=== PATIENT | male | born 1985 | race Caucasian/White ===

== ENCOUNTER 2018-02-09 08:32 | Day surgery (SDC) | payer OTHER ==
[~2018-02-09] VITALS: Ht 180.3 cm; Wt 69.5 kg
== END 2018-02-09 14:16 | disposition home or self-care (01) ==
LOC: ORSCSDS 08:32
PROVIDERS: Orthopaedic Surgery
PROC: 0LBQ0ZZ Excision of Right Knee Tendon, Open Approach (ICD-10-PCS; principal; 2018-02-09 09:45)
PROC: 0SQC4ZZ Repair Right Knee Joint, Percutaneous Endoscopic Approach (ICD-10-PCS; principal; 2018-02-09 09:45)
DX: M71.21 Synovial cyst of popliteal space [Baker], right knee (principal); S83.241A Other tear of medial meniscus, current injury, right knee, initial encounter; I10 Essential (primary) hypertension; F17.210 Nicotine dependence, cigarettes, uncomplicated
CPT/HCPCS: 88304; C1713; J0171; J0690; J1100; J1885; J2405; J3010; J7120

== ENCOUNTER 2019-05-23 05:54 | Day surgery (SDC) | payer OTHER ==
--- NOTE | 2019-05-23 06:35 | NUR ---
History, Chart, Medications and Allergies reviewed before start of procedure. Patient confirms NPO status and agrees with scheduled surgery. Lungs clear T/O to Auscultation. Patient reports completing Chlorhexadine shower X2 prior to admission to hospital. Patient States Post-Procedure ride home has been arranged. Pre-Op teaching done. Pt verbalizes understanding.
--- NOTE | 2019-05-23 06:36 | NUR ---
NO JEWELRY PRESENT AT THE TIME OF ADMIT TO [facility].
--- NOTE | 2019-05-23 06:57 | NUR ---
PATIENT TRYING TO MAKE ARRANGEMENTS FOR HIS RIDE TO COME PLANNER INTERNSHIP HIS PRESCRIPTIONS FOR PAIN MEDICATION AND CRUTCHES.
--- NOTE | 2019-05-23 07:05 | NUR ---
PATIENT UP TO BR FOR UNMEASURED VOID.
--- NOTE | 2019-05-23 07:18 | NUR ---
BEDSIDE REPORT WITH MEAT SEAFOOD ASSOCIATE, CHARITY DOWNS COMPLETED.
--- NOTE | 2019-05-23 09:16 | NUR ---
WAS BROUGHT INTO STEP BY SECURITY SCREENER. VSS. GIVEN COFFEE AND PAIN RX. ICE BAG PLACE 2ND CUP OF COFFEE.
--- NOTE | 2019-05-23 09:35 | NUR ---
;PATIENT DRESSED READY TO LEAVE AT THIS TIEM ALL DISCHARGE INSTRUC TIONS GONE OVER WITH AND ALL QUESTIONS ANSWERED. IF REMOVED AND PATIENT DISCHARGED AT THIS TIME. REPORTS BETTER PAIN CONTROL AFTER RX WAS GIVEN RATES PAIN DOWN TO 4/10
== END 2019-05-23 22:53 | disposition home or self-care (01) ==
LOC: ORSCMMR 05:54 → ORD 07:30 → ORSCMMR 07:30
PROVIDERS: Orthopaedic Surgery
PROC: 0SBC4ZZ Excision of Right Knee Joint, Percutaneous Endoscopic Approach (ICD-10-PCS; principal; 2019-05-23 07:30)
DX: S83.241D Other tear of medial meniscus, current injury, right knee, subsequent encounter (principal); F17.210 Nicotine dependence, cigarettes, uncomplicated
CPT/HCPCS: J0171; J0690; J1100; J1885; J2250; J2405; J3010; J7120

== ENCOUNTER 2021-11-25 00:53 | Emergency (ER) | payer OTHER ==
[~2021-11-25] VITALS: Ht 180.3 cm; Wt 72.6 kg
[2021-11-25] MEDS ORDERED: TOPICAINE113 GM TOP (02:45)
[2021-11-25] MEDS ORDERED: HYDCOR2.5C PR (02:45)
== END 2021-11-25 03:03 | disposition home or self-care (01) ==
LOC: ER 00:53
DX: K64.4 Residual hemorrhoidal skin tags (principal); F17.200 Nicotine dependence, unspecified, uncomplicated
CPT/HCPCS: 96372; 99283-25; A9270; J1885